=== PATIENT | female | born 1985 | race Caucasian/White ===

== ENCOUNTER → 2016-06-09 | Outpatient (CLI) | payer OTHER ==
[~2016-06-09] MED LIST: MTR600X PO; PRENTAB26 PO
[2016-06-09 12:22] LABS: BASO % 0.8 %; BASO ABS # 0.04 K/uL (0-0.2); COMPLETE YES; EOS % 2.2 %; LYMPH % 34.6 %; MEAN CELL VOLUME 90.3 fL (80-100); MEAN CORPUSCULAR HEMOGLOBIN 32.5 pg (25-34); MEAN PLATELET VOLUME 9.3 fL (7.4-10.4); MONO % 8.8 %; NEUT % 53.6 %; PLATELET COUNT 208 K/uL (130-400); RED BLOOD COUNT 4.43 M/uL (4.2-5.4); WHITE BLOOD COUNT 4.91 K/uL (4.8-10.8)
[2016-06-09 12:32] LABS: ALT/SGPT 20 U/L (12-78); AMYLASE 40 U/L (25-115); BLOOD UREA NITROGEN 12 mg/dl (7-18); BUN/CREATININE RATIO 12.6 (10-20); CALCIUM 9.4 mg/dl (8.5-10.1); CARBON DIOXIDE 25 mmol/L (21-32); CHLORIDE 108 mmol/L (98-107); CREATININE 0.96 mg/dl (0.60-1.20); GLUCOSE 90 mg/dl (70-99); POTASSIUM 3.6 mmol/L (3.5-5.1); SODIUM 143 mmol/L (136-145)
[2016-06-09 12:42] LABS: ALB/GLOB RATIO 1.4 (0.9-2); ALKALINE PHOSPHATASE 57 U/L (45-117); AST/SGOT 10 U/L (15-37)
== END | disposition home or self-care (01) ==
LOC: C.LABBFT 10:13
PROVIDERS: ATTEND Internal Medicine
DX: R10.9 Unspecified abdominal pain (principal)

== ENCOUNTER → 2016-11-21 | Outpatient (CLI) | payer OTHER | END | disposition home or self-care (01) | LOC: C.LABSPEC 17:26 | PROVIDERS: ATTEND Physician Assistant | DX: L29.8 Other pruritus (principal) ==

== ENCOUNTER → 2017-04-19 | Outpatient (CLI) | payer OTHER | END | disposition home or self-care (01) | LOC: C.PATHSPEC 17:20 | PROVIDERS: ATTEND Plastic Surgery | DX: L72.11 Pilar cyst (principal) ==

== ENCOUNTER → 2018-01-07 | Outpatient (CLI) | payer OTHER | END | disposition home or self-care (01) | LOC: C.LAB1850 07:39 | PROVIDERS: ATTEND Obstetrics & Gynecology | DX: Z31.41 Encounter for fertility testing (principal) ==

== ENCOUNTER 2018-11-04 07:31 | Inpatient (IN) ==
[2018-11-04] MEDS ORDERED: OXYTOCIN 30 UNITS/500 ML BAG IV PRN ×3 (13:37→20:21)
[2018-11-04 14:08] LABS: Hematocrit (blood only) 32.7 % (37-47); Hemoglobin 10.8 g/dL (12.0-16.0); Mean Corpuscular Volume 91.1 fL (80-100); Mean Platelet Volume 9.7 fL (7.4-10.4); Platelet Count 119 K/uL (130-400); RDW Coefficient of Variation 13.3 % (11.5-14.5); RDW Standard Deviation 44.5 fL (36.4-46.3); Red Blood Count 3.59 M/uL (4.2-5.4); White Blood Count 5.43 K/uL (4.8-10.8)
--- NOTE | 2018-11-04 14:26 | History & Physical Report ---
Date of Service November 04, 2018 Assessment & Plan (1) 40 weeks gestation of : Teressa is a 33-year-old who presents for induction of labor due to postdate at 41+1. - She is blood type A+, group B strep negative, rubella immune. Of note with both her current and past pregnancies she has a false positive test for RPR. - 4.5/80/-2 at last check Admit to L&D for induction of labor. Oxytocin induction 2 cc/hour protocol Continue routine care -Continue CASING SO[employer]ER medications including sertraline 100 p.o. daily. Continue to follow for increased risk of PPD. (2) Encounter for induction of labor: History of Present Illness Chief Complaint: Induction of labor, 41+1 Primary Care Provider: Evangelist Marroquin MD Teressa is a 33-year-old who presents for induction of labor due to postdate at 41+1. She is blood type A+, group B strep negative, rubella immune. Of note with both her current and past pregnancies she has a false positive test for RPR. Her current has been uncomplicated. She has had no complications with her prior pregnancies. She takes a vitamin daily. She also takes Zantac once per day, Protonix once per day for heartburn. She has had intermittent heartburn during . She takes Benadryl 1 to 2 tablets at night as needed for sleep. She has a past medical history of depression with her prior . She takes sertraline 100 mg daily for depression, reports her depression has been well controlled recently. She has a past medical history of exercise-induced asthma which she outgrew, has not had any symptoms in several years and does not use inhalers or steroids at baseline. Other than feeling tired, she reports she feels well today. She is here with her partner Lm. She has had good movement, although she notes a little bit decreased today. She denies vaginal bleeding and new vaginal discharge. Denies dysuria. Denies abdominal pain. She notes she is having contractions because with a tell her on the monitors, however she is "not sure how often "and they are not painful. She endorses low back pain with worse in the last couple of days. She denies numbness, tingling, weakness. She denies shortness of breath, difficulty breathing, chest pressure, and chest pain. She has not had any change in vision, denies flashers and floaters. She has not had any headaches and does not have a history of migraines. She endorses chronic bilateral lower leg swelling with her , but denies calf pain, asymmetrical swelling, calf warmth, and calf tenderness. She has not been sick recently and has not been around any sick contacts. She has no other questions and concerns at this time. Allergies Allergy/AdvReac Type Severity Reaction Status Date / Time No Known Allergies Allergy Unverified 08/28/15 08:56 Home Medications Home Medications Medication Instructions Recorded Confirmed Type pantoprazole 1 tab PO DAILY 10/04/18 11/04/18 History vit-iron fum-folic ac 1 tab PO DAILY 10/04/18 11/04/18 History [ Vitamin] ranitidine HCl 150 mg PO DAILY 10/04/18 11/04/18 History sertraline 1 tab PO DAILY 10/04/18 11/04/18 History Patient History Medical History No acute medical problems [place] teeth extracted ~ age 17 Family History Other Cancer Social History Preferred Language: Greenlandic Communication Ability: Effective 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 NAD. Cooperative. HEENT: Atraumatic, normocephalic. Visual acuity intact. Extraocular movements intact. Pupils equal and reactive to light and accommodation. Pulm: CTAB A&P. -wheezes, -rales, -rhonchi. Symmetrical chest rise. No increase work of breathing. No respiratory distress. Cardiac: RRR, -mrg. Radial pulses intact and symmetrical. Abdominal: Nontender, abdomen distention consistent with 40 weeks gestation of . No flank or right upper quadrant pain. Extremity: Bilateral swelling of her lower legs without pitting edema. No lower leg asymmetry. No calf tenderness to palpation. No calf erythema or warmth. Homans sign negative. Neuro: Strength grossly intact in all extremities, no sensory deficits in distal extremities. Results & Data Vital Signs (Past 12 Hours) Vital Signs Pulse Resp BP 11/04/18 12:51 70 18 109/73 Monitoring External Monitor Category 1 tracing. heart rate [id number]. Moderate variability. No decelerations. Supervising Physician Co-Signing Physician Notes Resident Physician Supervision Note: I interviewed and examined the patient. Discussed with Dr. Elvin Byrd PGY1 and agree with findings and plan as documented in the note. Any exceptions or clarifications are listed here: [None] Documented By: Teressa Restrepo MD, FACOG Resident Activity Tracking Resident Involvement: Resident Care Provided Care Provided: Adult Hospital Medicine
[2018-11-04] MEDS: LACTATED RINGER'S 1,000 ML IV PRN ×2 (14:48→15:41)
[2018-11-04] MEDS ORDERED: BUPIVACAINE 0.25% 30 ML VIAL ONE (16:37)
[2018-11-04] MEDS ORDERED: ePHEDrine sulfate 50 MG/ML AMP ONE (16:38)
[2018-11-04] MEDS ORDERED: fentaNYL citrate 100 MCG/2 ML VIAL ONE (16:38)
[2018-11-04] MEDS ORDERED: fentaNYL 2MCG/ML ROPIV 1.25MG/ML 100 ML BAG EPI ONE (16:39)
--- NOTE | 2018-11-04 16:44 | Anesthesiology Consultation ---
Date of Service November 04, 2018 Assessment & Plan (1) Encounter for pre-operative examination: Chart Review Chart Review: Patient NOT seen in Pre Admission Testing and Acceptable Risk for Labor Epidural Consults Requested none ASA ASA2 Proposed Anesthesia Anesthesia Type: Labor Epidural Risk / Benefits Reviewed With: PT / POA / Parent / Guardian, Accepts Plan and Informed Consent Obtained History Height/Weight Height: 5 ft 5 in Weight: 83.007 kg Allergies Allergy/AdvReac Type Severity Reaction Status Date / Time No Known Allergies Allergy Unverified 08/28/15 08:56 Medications Home Medications Medication Instructions Recorded Confirmed Last Taken pantoprazole 1 tab PO DAILY 10/04/18 11/04/18 11/04/18 06:00 vit-iron fum-folic ac 1 tab PO DAILY 10/04/18 11/04/18 11/03/18 21:30 [ Vitamin] ranitidine HCl 150 mg PO DAILY 10/04/18 11/04/18 11/03/18 21:30 sertraline 1 tab PO DAILY 10/04/18 11/04/18 11/03/18 21:30 Active Medications Generic Name Dose Route Start Last Admin Trade Name Freq PRN Reason Stop Dose Admin Oxytocin 30 units in 500 mls @ 5 mls/hr 11/04/18 13:37 11/04/18 16:24 Pitocin IV 12/04/18 13:36 0.3 units/hr .Q24H PRN 5 mls/hr Labor Induction/Augmentation Titration Protocol 0.3 UNITS/HR Lactated Ringer's 1,000 mls @ 125 mls/hr 11/04/18 13:37 11/04/18 15:41 Lr IV 11/06/18 13:36 125 mls/hr .Q8H PRN Administration L&D Protocol Protocol Past Medical History Medical History No acute medical problems [place] teeth extracted ~ age 17 Exercise / Class Metabolic Activity II 4-5 Yardwork/Stairs/Walk up hill Past Family History Family History Other Cancer Past Anesthesia History No Hx of Anesthesia Complications and No Family Hx of Anesthesia Complications History of PONV No Hx of PONV and No Hx of Motion Sickness Social History Smoking Status: Never smoker Hx Alcohol Use: No Alcohol type: wine alcohol intake frequency: a few times a month Hx Substance Use: No substance use type: does not use Physical Exam Vital Signs Last Vital Signs Temp 36.8 C 11/04/18 16:26 Pulse 68 11/04/18 16:26 Resp 18 11/04/18 16:26 BP 106/66 11/04/18 16:26 ENMT Mouth: no dentition abnormality Thyromental Distance: > or= 3.5 Finger Breadths Mallampati Class: II Neck normal visual inspection Respiratory normal respiratory effort Auscultation: lungs clear to auscultation bilaterally Cardiovascular Rate/Rhythm: regular rate and regular rhythm Psychiatric Orientation: alert Testing Laboratory Results Laboratory Tests 11/04/18 13:59 WBC 5.43 Hgb 10.8 L Hct 32.7 L Plt Count 119 L
[2018-11-04] MEDS ORDERED: PROMETHAZINE HCL 6.25 MG in SODIUM CHLORIDE 0.9% 50 ML IV PRN (17:15)
[2018-11-04] MEDS ORDERED: NALOXONE HCL 1 MG in SODIUM CHLORIDE 0.9% 1000ML 1,000 ML IV PRN (17:15)
[2018-11-04] MEDS ORDERED: NALOXONE HCL 0.4 MG/1 ML VIAL/CARP IV PRN (17:15)
[2018-11-04] MEDS ORDERED: fentaNYL 2MCG/ML ROPIV 1.25MG/ML 100 ML BAG EPI PRN (17:15)
[2018-11-04] MEDS ORDERED: NALBUPHINE HCL INJ 10 MG/ML AMP IV PRN (17:15)
[2018-11-04] MEDS ORDERED: DiphenhydrAMINE HCL 50 MG/ML VIAL IV PRN (17:15)
[2018-11-04] MEDS ORDERED: ePHEDrine sulfate 50 MG/ML AMP IV PRN (17:15)
[2018-11-04] MEDS ORDERED: ONDANSETRON INJ 2 MG/ML 2 ML VIAL IV PRN (17:15)
[2018-11-04] MEDS ORDERED: DIPHTHERIA/TETANUS/PERTUSSIS 0.5 ML SYR/VIAL IM ONE (20:21)
[2018-11-04] MEDS ORDERED: BENZOCAINE 20% AER SPR 82.5 GM CAN EXT PRN (20:21)
[2018-11-04] MEDS ORDERED: SUPERCREAM 0.870% 15 GM JAR EXT PRN (20:21)
[2018-11-04] MEDS ORDERED: HYDROCORTISONE ACETATE 25 MG SUPP PR PRN (20:21)
[2018-11-04] MEDS ORDERED: ACETAMINOPHEN 325 MG TAB PO PRN (20:21)
[2018-11-04] MEDS ORDERED: BISACODYL 10 MG SUPP PR PRN (20:21)
[2018-11-04] MEDS ORDERED: OXYCODONE/ACETAMINOPHEN 5mg/325mg TAB PO PRN (20:21)
--- NOTE | 2018-11-04 20:41 | Anesthesia Procedure Note ---
Date of Service November 04, 2018 Anesthesia Post Epidural Note Vital Signs Vital Signs: Temp Pulse Resp BP Pulse Ox 11/04/18 20:33 73 142/63 H 11/04/18 20:17 86 107/58 L 11/04/18 20:13 83 100 11/04/18 20:08 67 100 11/04/18 20:04 109/56 L 11/04/18 20:03 76 100 11/04/18 19:58 81 100 11/04/18 19:53 115 H 100 11/04/18 19:50 133 H 113/55 L 11/04/18 19:48 131 H 100 11/04/18 19:46 98 H 91 11/04/18 19:43 66 99 11/04/18 19:38 75 91 11/04/18 19:34 65 108/72 11/04/18 19:33 64 100 11/04/18 19:28 55 L 100 11/04/18 19:23 61 100 11/04/18 19:18 59 L 112/66 100 11/04/18 19:13 54 L 100 11/04/18 19:08 56 L 100 11/04/18 19:03 56 L 104/68 100 11/04/18 18:58 50 L 100 11/04/18 18:53 66 100 11/04/18 18:48 36.8 C 63 18 95/64 L 100 11/04/18 18:43 57 L 100 11/04/18 18:38 62 100 11/04/18 18:34 61 103/63 11/04/18 18:33 53 L 100 11/04/18 18:28 54 L 100 11/04/18 18:23 63 100 11/04/18 18:18 60 101/61 99 11/04/18 18:13 69 100 11/04/18 18:08 58 L 100 11/04/18 18:04 65 109/70 11/04/18 18:03 59 L 100 11/04/18 17:58 56 L 100 11/04/18 17:53 60 99 11/04/18 17:49 61 107/71 11/04/18 17:48 61 99 11/04/18 17:43 78 98 11/04/18 17:38 62 98 11/04/18 17:37 36.5 C 18 11/04/18 17:35 75 111/63 11/04/18 17:33 61 100 11/04/18 17:28 58 L 99 11/04/18 17:23 71 99 11/04/18 17:18 81 99 11/04/18 17:17 93 H 107/58 L 11/04/18 17:14 74 103/60 11/04/18 17:13 64 99 11/04/18 17:11 82 106/57 L 11/04/18 17:08 82 106/63 98 11/04/18 17:05 65 112/60 11/04/18 17:03 70 111/67 95 11/04/18 16:59 80 93 11/04/18 16:58 71 98 11/04/18 16:57 63 121/75 11/04/18 16:53 71 96 11/04/18 16:48 71 99 11/04/18 16:26 36.8 C 68 18 106/66 11/04/18 15:44 64 105/66 11/04/18 14:53 36.8 C 74 18 101/60 11/04/18 12:51 70 18 109/73 Notes Mental Status: alert / awake / arousable Nausea / Vomiting: adequately controlled Pain: adequately controlled Airway Patency, RR, SpO2: stable & adequate BP & HR: stable & adequate Hydration State: stable & adequate Neuraxial Anesthesia: was administered and sensory block is resolving Anesthetic Complications: no major complications apparent and Pt Satisfied with anesthetic care Epidural: Removed without complications and With tip intact
--- NOTE | 2018-11-05 04:40 | Delivery Summary ---
DATE OF OPERATION: 11/04/2018 The patient is a 33-year-old, 3, para 1-0-1-1 white female, EDC of 10/27/2018 who presented for induction because of post-terms . She was 4-5 cm upon arrival in labor and delivery. Pitocin induction was begun. Once we had a regular contraction pattern established, she received epidural analgesia. Membranes were ruptured for clear fluid. She progressed quickly to full dilation. She pushed effectively over intact perineum for delivery of a viable male . There was a mild shoulder dystocia present that was resolved with hyperflexion of the hips. Mouth and nasopharynx were suctioned after delivery and the infant was placed on mother's abdomen for further attention and drying. After approximately 30 seconds, the cord was clamped and cut. Cord blood was obtained for cord blood donation. The placenta was then expressed intact with a 3-vessel cord. A first-degree perineal laceration was repaired with 3-0 chromic in the usual fashion. Blood loss was 300 mL. Mother and were doing well after delivery. I attest to the content of the Intraoperative Record and any orders documented therein. Any exception s are noted below.
[2018-11-05] MEDS: IBUPROFEN 600 MG TAB PO PRN ×3 (06:19→17:38)
[2018-11-05 06:32] LABS: Hematocrit (blood only) 28.8 % (37-47); Hemoglobin 9.4 g/dL (12.0-16.0); Mean Corpuscular Hgb Conc 32.6 g/dL (32-36); Mean Corpuscular Volume 90.9 fL (80-100); Mean Platelet Volume 10.2 fL (7.4-10.4); Platelet Count 107 K/uL (130-400); RDW Coefficient of Variation 13.4 % (11.5-14.5); RDW Standard Deviation 44.8 fL (36.4-46.3); Red Blood Count 3.17 M/uL (4.2-5.4); White Blood Count 7.82 K/uL (4.8-10.8)
--- NOTE | 2018-11-05 07:03 | Obstetrical Progress Note ---
Date of Service <Elvin Byrd MD - Last Filed: 11/05/18 07:02> November 05, 2018 Assessment & Plan <Elvin Byrd MD - Last Filed: 11/05/18 07:02> (1) 40 weeks gestation of : Teressa is a 33-year-old who presented for induction of labor due to postdate at 41+1 now s/p NVD PPD#1 - She is blood type A+, group B strep negative, rubella immune. Of note with both her current and past pregnancies she has a false positive test for RPR. -Continue sertraline 100 p.o. daily. Continue to follow for increased risk of PPD. - Feels well today. Eating well, voiding well, ambulating well. - Pain well controlled with ibuprofen 600mg Q4H PRN, oxy/apap. - Routine care - After discharge will have [address] Petit. Subjective <Elvin Byrd MD - Last Filed: 11/05/18 07:02> Ambulation: ambulating normally Voiding: no voiding problems Passing Gas:: Yes Diet Tolerance:: regular diet Lochia:: Moderate Feeding Type:: breast feeding Current Pain Level(1-10): 5 (improved with rx) Review of Systems Denies fever, chills, sweats Denies shortness of breath, difficulty breathing, chest pain, palpitations, chest pressure. Denies breast pain. Denies dysuria. Denies headache. Physical Exam <Elvin Byrd MD - Last Filed: 11/05/18 07:02> Vital Signs (Past 24 Hours) Last Vital Signs Temp 36.3 C L 11/05/18 04:30 Pulse 65 11/05/18 04:30 Resp 18 11/05/18 04:30 BP 96/59 L 11/05/18 04:30 Pulse Ox 100 11/04/18 20:13 General: Alert, oriented. No acute distress. Cardiac: Regular rate and rhythm, no murmurs/rubs/gallops. Respiratory: Clear to auscultation anterior and posteriorly, no wheezes/rales/rhonchi. No increased work of breathing. Symmetrical chest rise. No respiratory distress. Abdomen: Soft, nontender, nondistended. Bowel sounds present. Uterus: Uterine fundus firm, palpable at to 1cm below umbilicus. Lower Extremities: No lower extremity edema or swelling. No deep calf pain. Lou's negative bilaterally. <Teressa Restrepo MD, FACOG - Last Filed: 11/05/18 07:45> Co-Signing Physician Notes Resident Physician Supervision Note: I interviewed and examined the patient. Discussed with Dr. Elvin Byrd PY1 and agree with findings and plan as documented in the note. Any exceptions or clarifications are listed here: [None] Documented By: Teressa Restrepo MD, FACOG Resident Activity Tracking <Elvin Byrd MD - Last Filed: 11/05/18 07:02> Resident Involvement: Resident Care Provided Care Provided: Adult Hospital Medicine
[2018-11-05] MEDS ORDERED: CALCIUM CARBONATE 500 MG CHEWABLE TAB PO PRN (08:29)
[2018-11-05] MEDS ORDERED: CALCIUM CARBONATE 500 MG CHEWABLE TAB ONE (08:52)
[2018-11-05] MEDS: PRENATAL VITAMIN 1 TAB PO SCH (08:55)
[2018-11-05] MEDS: PANTOprazole 40 MG TAB PO SCH (08:55)
[2018-11-05] MEDS: DOCUSATE SODIUM 100 MG CAP PO SCH ×2 (08:55→20:14)
[2018-11-05] MEDS ORDERED: SERTRALINE HCL 100 MG TABLET PO SCH ×2 (09:00→21:00)
[2018-11-05] MEDS ORDERED: BISACODYL 5 MG TABEC PO SCH (20:00)
[2018-11-06] MEDS: IBUPROFEN 600 MG TAB PO PRN ×3 (00:40→10:24)
--- NOTE | 2018-11-06 06:37 | Obstetrical Progress Note ---
Date of Service <Elvin Byrd MD - Last Filed: 11/06/18 06:36> November 06, 2018 Assessment & Plan <Elvin Byrd MD - Last Filed: 11/06/18 06:36> (1) 40 weeks gestation of : Teressa is a 33-year-old who presented for induction of labor due to postdate at 41+1 now s/p NVD PPD#2 - She is blood type A+, group B strep negative, rubella immune. Of note with both her current and past pregnancies she has a false positive test for RPR. - Continue sertraline 100 p.o. daily. Continue to follow for increased risk of PPD. - Feels well today. Eating well, voiding well, ambulating well. - Pain well controlled with ibuprofen 600mg Q4H PRN - Routine care - After discharge will have [address] Petit. Subjective <Elvin Byrd MD - Last Filed: 11/06/18 06:36> Ambulation: ambulating normally Voiding: no voiding problems Passing Gas:: Yes Diet Tolerance:: regular diet Lochia:: Small Feeding Type:: breast feeding Current Pain Level(1-10): 0 Review of Systems Denies fever, chills, sweats Denies shortness of breath, difficulty breathing, chest pain, palpitations, chest pressure. Denies breast pain. Denies dysuria. Denies headache. Physical Exam <Elvin Byrd MD - Last Filed: 11/06/18 06:36> Vital Signs (Past 24 Hours) Last Vital Signs Temp 36.6 C 11/06/18 00:30 Pulse 67 11/06/18 00:30 Resp 18 11/06/18 00:30 BP 103/67 11/06/18 00:30 Pulse Ox 96 11/06/18 00:30 General: Alert, oriented. No acute distress. Cardiac: Regular rate and rhythm, no murmurs/rubs/gallops. Respiratory: Clear to auscultation anterior and posteriorly, no wheezes/rales/rhonchi. No increased work of breathing. Symmetrical chest rise. No respiratory distress. Abdomen: Soft, nontender, nondistended. Bowel sounds present. Uterus: Uterine fundus firm, palpable 2cm below umbilicus. Lower Extremities: No lower extremity edema or swelling. No deep calf pain. Lou's negative bilaterally. <Pa Arellano Jr, MD, FACOG - Last Filed: 11/06/18 07:04> Co-Signing Physician Notes Resident Physician Supervision Note: I was present with Dr. Byrd during the history and exam. I discussed the case with the resident and agree with the findings and plan as documented in the note. Any exceptions or clarifications are listed here: Patient desires d/c. Instructions give, f/u in 6 weeks Documented By: Pa Arellano Jr, MD, FACOG Resident Activity Tracking <Elvin Byrd MD - Last Filed: 11/06/18 06:36> Resident Involvement: Resident Care Provided Care Provided: Adult Hospital Medicine
[2018-11-06 07:50] LABS: Hematocrit (blood only) 28.9 % (37-47); Hemoglobin 9.5 g/dL (12.0-16.0)
[2018-11-06] MEDS: DOCUSATE SODIUM 100 MG CAP PO SCH (10:23)
[2018-11-06] MEDS: PRENATAL VITAMIN 1 TAB PO SCH (10:23)
[2018-11-06] MEDS: PANTOprazole 40 MG TAB PO SCH (10:24)
== END 2018-11-06 12:45 | disposition home or self-care (01) | DRG 807 ==
LOC: 4S1 12:47 → 4S2 23:30

== ENCOUNTER 2023-10-08 04:08 | Inpatient (IN) ==
[2023-10-08] MEDS ORDERED: LACTATED RINGER'S 1,000 ML IV PRN (05:35)
[2023-10-08] MEDS: LIDOCAINE 1% LOCAL 20 ML VIAL INFIL PRN (06:13)
[2023-10-08 06:15] LABS: Hematocrit (blood only) 39.7 % (37.0-47.0); Hemoglobin 14.3 g/dl (12.0-16.0); Mean Corpuscular Hemoglobin 33.1 pg (25.0-34.0); Mean Corpuscular Volume 91.9 fL (80.0-100.0); Mean Platelet Volume 9.7 fL (9.4-12.4); Platelet Count 155 K/uL (130-400); RDW Coefficient of Variation 12.9 % (11.5-14.5); Red Blood Count 4.32 M/uL (4.20-5.40); White Blood Count 7.39 K/ul (4.8-10.8)
[2023-10-08] MEDS: OXYTOCIN 30 UNITS/NSS 30 UNITS/500 ML BAG IV PRN (06:22)
[2023-10-08] MEDS ORDERED: HYDROCORTISONE ACETATE 25 MG SUPP PR PRN (06:24)
[2023-10-08] MEDS ORDERED: OXYTOCIN 30 UNITS/NSS 30 UNITS/500 ML BAG IV PRN (06:24)
[2023-10-08] MEDS ORDERED: ACETAMINOPHEN 325 MG TAB PO PRN (06:24)
[2023-10-08] MEDS ORDERED: BENZOCAINE 20% SPRY 85 APPLN/85 GM CAN EXT PRN (06:24)
--- NOTE | 2023-10-08 06:24 | Delivery Summary ---
Vaginal Delivery Summary Date of Service October 08, 2023 Vaginal Delivery Summary and 2nd Degree LAC Patient presented in active labor and precipitously delivered. Progressed to 10 cm dilated 100% effaced +2 station pushed over intact perineum without anesthesia and delivered a viable with weight and Apgars pending. Had the delivered in DANITA position and transition to right transverse. No nuchal cord was noted. Body and shoulders quickly followed and was n oted be vigorous soon after delivery. 1 minute delayed cord clamping was initiated cord was double clamped and cut. Cord blood obtained. Attention turned to delivery of the placenta which delivered intact three-vessel cord gentle cord traction. There is noted to be a second-degree perineal lacerations. A traditional crown stitch using 3-0 Vicryl. Needle sponge and instrument counts were correct at the completion of the case. Both mother and stable in the immediate postdelivery [facility] – [place] Vaginal Delivery Charge Delivery Type Details: and 2nd Degree LAC
[2023-10-08] MEDS: miSOPROStoL 200 MCG TAB ONE (07:07)
[2023-10-08] MEDS: IBUPROFEN 600 MG TAB PO PRN (07:25)
[2023-10-08] MEDS: FERROUS SULFATE 325 MG TAB PO SCH (08:43)
[2023-10-08] MEDS: DOCUSATE SODIUM 100 MG CAP PO SCH (08:43)
[2023-10-08] MEDS: PRENATAL VITAMIN 1 TAB PO SCH (08:43)
[2023-10-08] MEDS: DIPHTHER/TETAN/PERTUS Vaccine (Tdap, Adol/Adult) 0.5mL IM ONE (09:06)
--- NOTE | 2023-10-09 08:14 | Obstetrical Progress Note ---
Date of Service October 09, 2023 Assessment & Plan (1) Encounter for care and examination after delivery: Plan Plan d/c later today. Instructions given. Day #:: 1 Subjective Ambulation: ambulating normally Voiding: no voiding problems Passing Gas:: Yes Diet Tolerance:: regular diet Lochia:: Small Feeding Type:: bottle feeding Feels well. would like to go home later today. Physical Exam Constitutional WD/WN, vitals as above Neck trachea midline, no thyromegaly Respiratory normal respiratory effort, lungs clear to auscultation Cardiovascular RRR, no murmur, no edema Gastrointestinal (Abdomen) soft, nt, nd ff/nt at u Psychiatric A+Ox3, euthymic affect Results & Data Vital Signs (Past 12 Hours) Vital Signs Temp Pulse Resp BP Pulse Ox O2 Del Method 10/09/23 03:10 36.5 C 58 L 18 109/71 97 Room Air 10/08/23 23:25 36.4 C L 67 18 114/78 97 Room Air
[2023-10-09] MEDS ORDERED: bisacodyL 5 MG TABEC PO SCH (20:00)
[2023-10-10] MEDS ORDERED: bisacodyL 10 MG SUPP PR PRN (06:24)
== END 2023-10-09 14:00 | disposition home or self-care (01) | DRG 807 ==
LOC: OPB 04:08 → 4S1 04:14 → 4E2 09:05